=== PATIENT | female | born 1950 | race African-American/Black ===

== ENCOUNTER 2020-02-23 11:36 | Inpatient (IN) | payer MEDICARE, MEDICAID, OTHER ==
[~2020-02-23] VITALS: Ht 162.6 cm; Wt 60.1 kg
[2020-02-23] MEDS ORDERED: ONDANSETRON HCL 4MG/2ML INJ IV ONE (12:15)
[2020-02-23] MEDS ORDERED: MECLIZINE 25MG TABLET PO ONE (12:15)
[2020-02-23 12:37] LABS: BASOPHILS % 0.5 % (0.0-2.0); HEMATOCRIT. 46.4 % (36.0-48.0); HEMOGLOBIN. 15.3 g/dL (12.0-16.0); LYMPHOCYTES % 15.1 % (20.0-50.0); MEAN CORPUSCULAR HEMOGLOBIN 28.7 pg (28.0-32.0); MONOCYTES % 6.2 % (2.0-8.0); NEUTROPHILS % 77.2 % (40.0-76.0); PLATELET 256 x1000/uL (130-400); RED BLOOD CELL COUNT 5.33 mill/uL (4.2-5.4); RED CELL DISTRIBUTION WIDTH 14.7 % (11.6-14.6)
[2020-02-23 12:44] LABS: CHLORIDE 109 mEq/L (98-107)
[2020-02-23 12:47] LABS: PROTHROMBIN TIME 10.9 sec (9.6-11.0)
[2020-02-23 12:51] LABS: ETHANOL BLOOD < 10 mg/dL
[2020-02-23 12:58] LABS: LDL CHOLESTEROL 112 mg/dL (5-100)
[2020-02-23 15:54] LABS: *AMPHETAMINES SCREEN URINE NEGATIVE (NEGATIVE); *BARBITURATES SCREEN URINE NEGATIVE (NEGATIVE); *BENZODIAZEPINES SCREEN URINE NEGATIVE (NEGATIVE); *COCAINE SCREEN URINE NEGATIVE (NEGATIVE); METHADONE URINE SCREEN NEGATIVE (NEGATIVE)
[2020-02-23 15:55] LABS: CANNABINOID URINE SCREEN NEGATIVE (NEGATIVE); OPIATES URINE SCREEN NEGATIVE (NEGATIVE); PHENCYCLIDINE URINE SCREEN NEGATIVE (NEGATIVE)
[2020-02-23 16:30] LABS: CLARITY URINE CLEAR (CLEAR); COLOR URINE YELLOW (YELLOW); SPECIFIC GRAVITY URINE 1.015 (1.005-1.030)
[2020-02-23 16:31] LABS: PROTEIN URINE 2+ (NEGATIVE)
[2020-02-23 16:32] LABS: KETONES URINE 1+ (NEGATIVE); NITRITE URINE NEGATIVE (NEGATIVE); OCCULT BLOOD URINE NEGATIVE (NEGATIVE)
[2020-02-23 16:33] LABS: LEUKOCYTE ESTERASE URINE 3+ (NEGATIVE)
[2020-02-23 18:41] VITALS: BP 115/81
[2020-02-23 19:00] VITALS: BP 127/68
[2020-02-23] MEDS ORDERED: CLONIDINE 0.1MG TABLET PO PRN (20:15)
[2020-02-23] MEDS ORDERED: ACETAMINOPHEN 325MG TABLET PO PRN (20:15)
[2020-02-23] MEDS ORDERED: MECLIZINE 25MG TABLET PO PRN (20:15)
[2020-02-23] MEDS ORDERED: ONDANSETRON HCL 4MG/2ML INJ IV PRN (20:15)
[2020-02-23] MEDS ORDERED: AMLO5TAB88 PO (20:38)
[2020-02-23] MEDS ORDERED: OMEP20CA14 PO (20:38)
[2020-02-23] MEDS: SODIUM CHLORIDE 0.9% 1,000 ML IV SCH (20:41)
[2020-02-23 22:00] VITALS: BP 130/82
[2020-02-24] VITALS (11 sets, daily range): BP systolic 104–135; BP diastolic 67–83
[2020-02-24 01:27] LABS: CHLORIDE 112 mEq/L (98-107)
[2020-02-24 01:31] LABS: BASOPHILS % 0.5 % (0.0-2.0); EOSINOPHILS % 2.5 % (0.0-5.0); HEMATOCRIT. 40.1 % (36.0-48.0); HEMOGLOBIN. 13.5 g/dL (12.0-16.0); LYMPHOCYTES % 33.9 % (20.0-50.0); MEAN CORPUSCULAR VOLUME 86.1 fL (81.0-99.0); MEAN PLATELET VOLUME 8.4 fl (7.4-10.4); MONOCYTES % 12.2 % (2.0-8.0); NEUTROPHILS % 50.9 % (40.0-76.0); PLATELET 261 x1000/uL (130-400); RED BLOOD CELL COUNT 4.66 mill/uL (4.2-5.4); RED CELL DISTRIBUTION WIDTH 14.5 % (11.6-14.6)
[2020-02-24] MEDS: SODIUM CHLORIDE 0.9% 1,000 ML IV SCH ×2 (06:32→15:54)
[2020-02-24] MEDS ORDERED: AMLODIPINE 5MG TABLET PO SCH (09:00)
[2020-02-24 09:48] LABS: BASOPHILS % 0.8 % (0.0-2.0); EOSINOPHILS % 3.8 % (0.0-5.0); HEMATOCRIT. 42.2 % (36.0-48.0); HEMOGLOBIN. 13.8 g/dL (12.0-16.0); MEAN CORPUSCULAR HEMOGLOBIN 28.8 pg (28.0-32.0); MEAN CORPUSCULAR VOLUME 87.6 fL (81.0-99.0); MEAN PLATELET VOLUME 8.4 fl (7.4-10.4); MONOCYTES % 8.8 % (2.0-8.0); NEUTROPHILS % 48.6 % (40.0-76.0); PLATELET 244 x1000/uL (130-400); RED BLOOD CELL COUNT 4.82 mill/uL (4.2-5.4); RED CELL DISTRIBUTION WIDTH 14.8 % (11.6-14.6)
[2020-02-24 09:52] LABS: CHLORIDE 113 mEq/L (98-107)
[2020-02-24] MEDS ORDERED: POTASSIUM CHLORIDE 20MEQ TABLET SR PO NR (11:00)
== END 2020-02-24 18:41 | disposition home or self-care (01) | DRG 392 ==
LOC: ER 12:32 → 3WST 14:39 → EDBEDREQTM 14:50 → EDBEDREQ 14:50 → ENRESERV 17:12
PROVIDERS: ADMIT Internal Medicine; ATTEND Internal Medicine
DX: K52.9 Noninfective gastroenteritis and colitis, unspecified (principal); K21.9 Gastro-esophageal reflux disease without esophagitis; K29.70 Gastritis, unspecified, without bleeding; E87.6 Hypokalemia; I10 Essential (primary) hypertension
CPT/HCPCS: 36415; 71045; 80048; 80053; 80305; 80320; 81003; 83721; 84484; 85025; 93005; 99285; J2405; J7030; J8597; G0480

== ENCOUNTER 2021-12-16 07:39 | Emergency (ER) | payer MEDICARE, MEDICAID, OTHER ==
[~2021-12-16] VITALS: Ht 157.5 cm; Wt 46.0 kg
[~2021-12-16 07:39] MED LIST: AMLO5TAB88 PO; OMEP20CA14 PO
[2021-12-16] MEDS ORDERED: ACETAMINOPHEN WITH CODEINE 300/30MG TABLET PO ONE (08:00)
[2021-12-16 08:04] VITALS: BP 140/92
[2021-12-16] MEDS ORDERED: T3 PO (08:53)
== END 2021-12-16 09:42 | disposition home or self-care (01) ==
LOC: ER 07:39
DX: S80.12XA Contusion of left lower leg, initial encounter (principal); V04.90XA Pedestrian on foot injured in collision with heavy transport vehicle or bus, unspecified whether traffic or nontraffic accident, initial encounter; Y93.89 Activity, other specified; Y92.488 Other paved roadways as the place of occurrence of the external cause
CPT/HCPCS: 73590; 99283

== ENCOUNTER 2023-07-19 05:40 | Emergency (ER) | payer MEDICARE, OTHER ==
[~2023-07-19] VITALS: Ht 165.1 cm; Wt 60.0 kg
[~2023-07-19 05:40] MED LIST changes: +T3 PO
[2023-07-19 06:19] VITALS: BP 137/83; PULSE 66; RESP 16; TEMP 98.2; O2SAT 98
== END 2023-07-19 07:32 | disposition home or self-care (01) ==
LOC: ER 05:40
DX: F41.0 Panic disorder [episodic paroxysmal anxiety] (principal); F32.A Depression, unspecified; I10 Essential (primary) hypertension; Z86.73 Personal history of transient ischemic attack (TIA), and cerebral infarction without residual deficits
CPT/HCPCS: 99283

== ENCOUNTER 2023-12-22 05:22 | Emergency (ER) | payer MEDICARE, OTHER ==
[~2023-12-22] VITALS: Ht 167.6 cm; Wt 59.0 kg
[2023-12-22 05:36] VITALS: O2SAT 98
[2023-12-22] MEDS: IBUPROFEN 600MG TABLET PO ONE (06:19)
[2023-12-22 08:55] VITALS: BP 148/82; PULSE 88; RESP 18; TEMP 98.2
== END 2023-12-22 08:56 | disposition home or self-care (01) ==
LOC: ER 05:22
DX: S01.21XA Laceration without foreign body of nose, initial encounter (principal); I10 Essential (primary) hypertension; Z98.890 Other specified postprocedural states; Z86.73 Personal history of transient ischemic attack (TIA), and cerebral infarction without residual deficits; Y04.0XXA Assault by unarmed brawl or fight, initial encounter; Y93.89 Activity, other specified; Y92.89 Other specified places as the place of occurrence of the external cause; Y99.8 Other external cause status
CPT/HCPCS: 12011; 73502; 99283